=== PATIENT | female | born 1995 | race Caucasian/White ===

== ENCOUNTER 2019-11-13 20:18 | Emergency (ER) | payer BC ==
[2019-11-13] MEDS ORDERED: Ondansetron INJ* 2 MG/ML VIAL IV ONE (20:48)
[2019-11-13] MEDS ORDERED: NS 0.9% 1000 ML** 1,000 ML IV ONE ×2 (20:48→21:37)
--- NOTE | 2019-11-13 20:57 | UC ---
Nausea/Vomiting/Diarrhea HPI - HPI Summary HPI Summary: 24-year-old female comes in with a chief complaint of nausea vomiting. Started about 2 AM this morning. Patient has taken Zofran 4 mg enteric-coated to help with the symptoms. One of the for time she took the 4 mg she threw up the pill right away. No focal area abdominal pain. No fevers. Does feel dehydrated. Has not been able to tolerate by mouth fluids or food. - History of Current Complaint Chief Complaint: UCGI Stated Complaint: VOMITING Time Seen by Provider: 11/13/19 20:42 Hx Last Menstrual Period: trans Pain Intensity: 6 - Allergies/Home Medications Allergies/Adverse Reactions: Allergies Allergy/AdvReac Type Severity Reaction Status Date / Time No Known Allergies Allergy Verified 11/13/19 20:36 PMH/Surg Hx/FS Hx/Imm Hx Previously Healthy: Yes - Surgical History Surgical History: None - Family History Known Family History: Positive: Non-Contributory - Social History Alcohol Use: Occasionally Alcohol Amount: Once every two months Substance Use Type: None Smoking Status (MU): Never Smoked Tobacco Review of Systems All Other Systems Reviewed And Are Negative: Yes Constitutional: Positive: Negative Skin: Positive: Negative Eyes: Positive: Negative ENT: Positive: Negative Respiratory: Positive: Negative Cardiovascular: Positive: Negative Gastrointestinal: Positive: Other - see hpi Motor: Positive: Negative Neurovascular: Positive: Negative Musculoskeletal: Positive: Negative Neurological: Positive: Negative Psychological: Positive: Negative Is Patient Immunocompromised?: No Physical Exam Triage Information Reviewed: Yes Appearance: No Pain Distress, Well-Nourished, Ill-Appearing - mild Vital Signs: Initial Vital Signs Temp 98.5 F 11/13/19 20:28 Pulse 126 11/13/19 20:28 Resp 16 11/13/19 20:28 BP 107/76 11/13/19 20:28 Pulse Ox 98 11/13/19 20:28 Vital Signs Reviewed: Yes Eye Exam: Normal Eyes: Positive: Conjunctiva Clear ENT: Positive: Pharynx normal Neck: Positive: Supple Respiratory: Positive: Lungs clear, Normal breath sounds, No respiratory distress Cardiovascular: Positive: Tachycardia Abdomen Description: Positive: Other: - Mild diffuse tenderness no rebound. Bowel Sounds: Positive: Present Musculoskeletal: Positive: Strength Intact, ROM Intact Neurological: Positive: Alert, Muscle Tone Normal Psychological: Positive: Age Appropriate Behavior Skin Exam: Normal Naus/Vom/Diarrhea Course/Dx - Differential Dx/Diagnosis Provider Diagnosis: Nausea & vomiting, Dehydration Discharge ED - Sign-Out/Discharge Documenting (check all that apply): Patient Departure All imaging exams completed and their final reports reviewed: No Studies - Discharge Plan Condition: Stable Disposition: HOME Patient Education Materials: Acute Nausea and Vomiting (ED), Dehydration (ED) Referrals: Keith Headley [Primary Care Provider] - Additional Instructions: FOLLOW UP WITH YOUR DOCTOR IF NOT COMPLETELY IMPROVED. GO TO THE EMERGENCY DEPARTMENT IF NOT IMPROVED OR WORSE; PAIN, FEVER, DEHYDRATION, YOU FEEL ILL OR ANY QUESTIONS OR CONCERNS. - Billing Disposition and Condition Condition: STABLE Disposition: Home
[2019-11-13] MEDS ORDERED: Metoclopramide IV* 5 MG/ML 2 ML VIAL IV SLOW PU ONE (21:37)
[2019-11-13] MEDS ORDERED: Metoclopramide TAB* 10 MG PO ONE (21:57)
[2019-11-13] MEDS ORDERED: Ondansetron ODT TAB* 4 MG PO ONE (21:58)
[2019-11-13 22:28] VITALS: BP 146/72
== END 2019-11-13 22:45 | disposition home or self-care (01) ==
LOC: UCEAST 20:18
DX: R11.2 Nausea with vomiting, unspecified (principal); E86.0 Dehydration
CPT/HCPCS: 96360; 96361; 96374; 96375; 99213; A9270-GY; G0463; J2405; J2765